=== PATIENT | male | born 1975 | race Caucasian/White ===

== ENCOUNTER 2024-06-05 15:56 | Emergency (ER) | payer OTHER, SELFPAY ==
--- NOTE | 2024-06-05 16:01 | ED.SKABFB ---
HPI - Skin/Abscess/Foreign Bdy General Chief complaint: Skin/Abscess/Foreign Body Stated complaint: Lt Thumb Cut Time Seen by Provider: 06/05/24 16:33 Source: patient, RN notes reviewed and old records reviewed Mode of arrival: ambulatory Limitations: no limitations History of Present Illness HPI narrative: 49-year-old male to [facility] for complaint infected wound to left thumb. Patient reports that on Saturday he was clearing brush when he scraped his left proximal dorsal thumb. Patient reports increased redness, swelling, warmth, tenderness and purulent discharge or past 2 days. Patient reports that wound has been actively draining all day today. Patient denies numbness, tingling, limited ROM, prior injury, allergies, pertinent medical history, Pain radiating into limb, fever, nausea, body aches, chills. Patient resting comfortably in exam room in no acute distress. Respirations even and nonlabored. Related Data Home Medications Medication Instructions Recorded Confirmed atorvastatin 10 mg tablet 40 mg PO DAILY 04/11/22 06/05/24 escitalopram oxalate 20 mg tablet 20 mg PO DAILY 04/11/22 06/05/24 dextromethorphan IR 45 1 tablet PO BID 06/05/24 06/05/24 mg-bupropion ER 105 mg biphasic tablet (Auvelity) losartan 25 mg tablet 25 mg DAILY 06/05/24 06/05/24 meloxicam 15 mg tablet 15 mg DAILY 06/05/24 06/05/24 omeprazole 20 mg DAILY 06/05/24 06/05/24 Allergies Allergy/AdvReac Type Severity Reaction Status Date / Time No Known Allergies Allergy Unknown Verified 06/05/24 16:11 Review of Systems Review of Systems: All systems reviewed & are unremarkable except as noted in HPI and below Constitutional: Constitutional: Reports no additional constitutional complaints Eyes: Eyes: Reports no additional eye complaints ENT: Reports system reviewed and no additional complaints, except as documented Cardiovascular: Cardiovascular: Reports no additional cardiovascular complaints, Denies chest pain and Denies dyspnea Respiratory: Respiratory: Reports no additional respiratory complaints, Denies cough and Denies dyspnea Musculoskeletal: Musculoskeletal: Reports no additional musculoskeletal complaints Integumentary/Breasts: Skin/Breast: Reports as per HPI, Reports swelling, Reports erythema, Reports skin pain and Reports wounds Neurologic: Reports system reviewed and no additional complaints, except as documented Psychiatric: Psychiatric: Reports no additional psychiatric complaints PMFSH Past Medical History Medical History Hyperlipidemia Surgical History Surgical History H/O knee surgery History of ankle surgery Previous back surgery Family History Family History Mother Depression Sibling Depression Other COPD (chronic obstructive pulmonary disease) Social History Social History Smoking status: Never smoker Alcohol intake: current Substance use: never Substance use type: does not use Living arrangements: with family Occupation/Education: occupation Comments At the time of my signature, I reviewed and agree with the nursing past medical, surgical, social, and family history. There is no relevant family history pertinent to the patient complaint. Exam Const: General: cooperative, healthy appearing, comfortable, no acute distress, alert and well nourished Nutritional Appearance: well nourished Orientation/consciousness: patient oriented x3 Limitations: no limitations HENMT: Head: normal to inspection Ears: external ears normal Face/Nose/Sinus: Normal external nose present, Normal nares present, normal facial exam, No erythema and No edema Face and sinus: normal facial exam, no erythema and no edema Mouth: Yes Normal oral and palatal mucos
[2024-06-05 16:02] VITALS: BP 153/90; PULSE 96; RESP 16; TEMP 36.8; O2SAT 97
== END 2024-06-05 16:48 | disposition home or self-care (01) ==
PROVIDERS: Emergency Provider Nurse Practitioner Family; PCP Family Medicine
DX: L02.512 Cutaneous abscess of left hand (principal); E78.5 Hyperlipidemia, unspecified
CPT/HCPCS: 99213; G0463

== ENCOUNTER 2024-06-26 17:33 | Emergency (ER) | payer OTHER, SELFPAY ==
[2024-06-26 17:35] VITALS: BP 118/74; PULSE 99; RESP 18; TEMP 36.7; O2SAT 97
--- NOTE | 2024-06-26 18:01 | ED.WOUNDLAC ---
HPI - Wound/Laceration General Chief Complaint: Wound/Laceration Stated Complaint: Laceration to Right Index Finger Time Seen by Provider: 06/26/24 18:01 Source: patient Mode of arrival: ambulatory Limitations: no limitations History of Present Illness HPI narrative: 49 y/o male presented for c/o finger laceration to right index finger. Cut his finger on a new razor while cutting plastic ties. Rinsed the site with hydrogen peroxide. Says he could not get the bleeding to stop. Had applied paper towel and pressure. Reports full ROM to the finger. Unsure of last tetanus. Pt is left hand dominant. Related Data Home Medications Medication Instructions Recorded Confirmed atorvastatin 10 mg tablet 40 mg PO DAILY 04/11/22 06/05/24 escitalopram oxalate 20 mg tablet 20 mg PO DAILY 04/11/22 06/05/24 dextromethorphan IR 45 1 tablet PO BID 06/05/24 06/05/24 mg-bupropion ER 105 mg biphasic tablet (Auvelity) losartan 25 mg tablet 25 mg DAILY 06/05/24 06/05/24 meloxicam 15 mg tablet 15 mg DAILY 06/05/24 06/05/24 omeprazole 20 mg DAILY 06/05/24 06/05/24 Allergies Allergy/AdvReac Type Severity Reaction Status Date / Time No Known Allergies Allergy Unknown Verified 06/26/24 17:56 Review of Systems Review of Systems: CONSTITUTIONAL: Denies body aches, fever, chills, or sweats. CARDIOVASCULAR: Denies chest pain, palpitations, or edema. RESPIRATORY: Denies cough or dyspnea. SKIN: Reports finger laceration right index MUSCULOSKELETAL: Denies back pain, joint pain, or myalgia. NEUROLOGIC: Denies headache, numbness, tingling, or weakness. [facility] Past Medical History Medical History Hyperlipidemia Surgical History Surgical History H/O knee surgery History of ankle surgery Previous back surgery Family History Family History Mother Depression Sibling Depression Other COPD (chronic obstructive pulmonary disease) Social History Social History Smoking status: Never smoker Alcohol intake: current Substance use: never Substance use type: does not use Living arrangements: with family Occupation/Education: occupation Comments At time of signature, I have reviewed and agree with nursing past medical, surgical, social and family history unless otherwise noted. Please see nursing chart for further information. There is no relevant family history pertinent to the presenting complaint Exam Narrative: GENERAL: Well-appearing ENT: Mucous membranes moist. Oropharynx without edema, erythema or lesions. CHEST: Clear to auscultation. HEART: Regular rate and rhythm. SKIN: Warm, dry. right 2nd digit proximal phalanx radial aspect with 1.5 cm linear laceration, CMS intact to digit. NEURO: Alert and oriented x3. Course Course Emergency Course: Patient is aware of diagnosis, understands and agrees to treatment plan. Anticipatory guidance given. Patient agrees to follow-up as directed and is aware of reasons to seek care at the emergency department. Portions of this record may have been created with voice recognition software Level of Care: Express Care Visit Vital Signs Vital signs: Vital Signs Temperature 98.1 F 06/26/24 17:35 Pulse Rate 99 06/26/24 17:35 Respiratory Rate 18 06/26/24 17:35 Blood Pressure 118/74 06/26/24 17:35 Pulse Oximetry 97 06/26/24 17:35 Oxygen Delivery Room Air 06/26/24 17:35 Temperature 98.1 F 06/26/24 17:35 Pulse Rate 99 06/26/24 17:35 Respiratory Rate 18 06/26/24 17:35 Blood Pressure 118/74 06/26/24 17:35 Pulse Oximetry 97 06/26/24 17:35 Oxygen Delivery Room Air 06/26/24 17:35 Reviewed Procedures Laceration right 2nd digit: Date: 06/26/24 Size (cm): 1.5 Description: line
[2024-06-26] MEDS: TETANUS,DIPHTHERIA,AC PERTUSSIS ADULT (0.5 ML) BOOSTRIX IM (18:32)
[2024-06-26] MEDS: LIDOCAINE HCL 1% LOCAL INJ 2 ML AMPUL 6 ML INFILTRATE (18:33)
== END 2024-06-26 18:40 | disposition home or self-care (01) ==
PROVIDERS: Emergency Provider Nurse Practitioner Family; PCP Family Medicine
DX: S61.210A Laceration without foreign body of right index finger without damage to nail, initial encounter (principal); W26.8XXA Contact with other sharp object(s), not elsewhere classified, initial encounter; Z23 Encounter for immunization; E78.5 Hyperlipidemia, unspecified
CPT/HCPCS: 12001; 90471; 90715; 99213; G0463; J2003